=== PATIENT | female | born 1985 | race Two or more races ===

== ENCOUNTER 2017-12-07 23:40 | Emergency (ER) | payer MEDICAID, OTHER ==
[~2017-12-07] VITALS: Ht 170.2 cm; Wt 158.8 kg
[2017-12-08] MEDS ORDERED: PROPOFOL 10 MG/ML 20 ML IV ONE (00:30)
[2017-12-08] MEDS ORDERED: KETOROLAC TROMETH 30 MG/ML 1ML VIAL IV ONE ×2 (01:00→02:45)
[2017-12-08] MEDS ORDERED: PROPOFOL 100 ML IV ONE (01:29)
[2017-12-08] MEDS ORDERED: fentaNYL CITRATE 5 ML ONE (01:50)
[2017-12-08] MEDS ORDERED: fentaNYL CITRATE 100 MCG/2 ML VL IV ONE ×2 (02:00→02:45)
[2017-12-08 03:08] VITALS: BP 130/82
== END 2017-12-08 04:34 | disposition home or self-care (01) ==
LOC: ER 23:45
DX: M23.92 Unspecified internal derangement of left knee (principal); E11.9 Type 2 diabetes mellitus without complications; I10 Essential (primary) hypertension; E66.01 Morbid (severe) obesity due to excess calories; Z68.43 Body mass index [BMI] 50.0-59.9, adult; W01.0XXA Fall on same level from slipping, tripping and stumbling without subsequent striking against object, initial encounter; Y93.89 Activity, other specified; Y92.090 Kitchen in other non-institutional residence as the place of occurrence of the external cause; Y99.8 Other external cause status
CPT/HCPCS: 27560; 72170; 73552; 73560; 96374; 96375; 96376; 99285; J1885; J2704; J3010

== ENCOUNTER 2021-08-24 13:23 | Emergency (ER) | payer MEDICAID ==
[~2021-08-24] VITALS: Ht 170.2 cm; Wt 166.9 kg
[2021-08-24 14:37] LABS: Basophils # (auto) 0 10 ^3/uL (0-0.2); Basophils % (auto) 0.2 % (0.0-2.0); Eosinophils # (auto) 0.2 10 ^3/uL (0-0.8); Eosinophils % (auto) 2.9 % (0.0-7.0); Hematocrit 36.1 % (36.0-46.0); Hemoglobin 11.8 g/dL (12.2-16.2); Lymphocytes # (auto) 1.9 10 ^3/uL (0.4-5.4); Lymphocytes % (auto) 22.6 % (10.0-50.0); Mean Corpuscular Hgb Conc. 32.7 g/dL (32.0-36.0); Mean Corpuscular Volume 82.5 fL (80.0-100.0); Monocytes # (auto) 0.5 10 ^3/uL (0-1.3); Monocytes % (auto) 5.8 % (0.0-12.0); Neutrophils # (auto) 5.6 10 ^3/uL (1.6-8.6); Neutrophils % (auto) 68.5 % (37.0-80.0); Red Blood Cells 4.38 10^6/uL (4.0-5.20); Red Cell Distribution Width 14.7 % (11.8-14.3); White Blood Cell 8.2 10^3/uL (4.4-10.8)
[2021-08-24 14:40] LABS: Albumin 2.7 g/dL (3.4-5.0); BUN/Creatinine Ratio 8.9; Calcium 8.4 mg/dL (8.5-10.1); Potassium 3.5 mmol/L (3.5-5.1)
[2021-08-24 14:43] LABS: Bilirubin, Total 0.2 mg/dL (0.2-1.0); Total Protein 6.9 g/dL (6.4-8.2)
[2021-08-24 16:13] VITALS: BP 152/98
== END 2021-08-24 16:14 | disposition home or self-care (01) ==
LOC: ER 13:23
DX: O16.2 Unspecified maternal hypertension, second trimester (principal); E11.9 Type 2 diabetes mellitus without complications; Z3A.16 16 weeks gestation of pregnancy
CPT/HCPCS: 36415; 76805; 80053; 84702; 85025

== ENCOUNTER 2022-03-24 10:41 | Emergency (ER) | payer MEDICAID ==
[~2022-03-24] VITALS: Ht 170.2 cm; Wt 163.5 kg
[2022-03-24 11:54] VITALS: BP 146/99
[2022-03-24] MEDS ORDERED: KETOROLAC TROMETH 60MG/2ML VIAL IM ONE (12:00)
[2022-03-24] MEDS ORDERED: IBUP800T27 PO (12:22)
[2022-03-24] MEDS ORDERED: METH750T22 PO (12:22)
== END 2022-03-24 12:34 | disposition home or self-care (01) ==
LOC: ER 10:41
DX: S29.011A Strain of muscle and tendon of front wall of thorax, initial encounter (principal); E11.9 Type 2 diabetes mellitus without complications; I10 Essential (primary) hypertension; F12.10 Cannabis abuse, uncomplicated; X58.XXXA Exposure to other specified factors, initial encounter; Y93.89 Activity, other specified; Y92.89 Other specified places as the place of occurrence of the external cause; Y99.8 Other external cause status
CPT/HCPCS: 71101; 96372; 99283; J1885

== ENCOUNTER → 2024-10-19 | Outpatient (CLI) | payer MEDICAID ==
[~2024-10-19] VITALS: Ht 170.2 cm; Wt 187.3 kg
[~2024-10-19] MED LIST: IBUP-1456 PO; METH-1182 PO; PREN-96 PO
[2024-10-19] MEDS: REGADENOSON 0.4 MG/5 ML SYRG IV ONE ×2 (13:31→13:34)
--- NOTE | 2024-10-19 15:12 | DVHSR ---
APPROVED REPORT Exam: Nuclear Stress Test BMI: 0 Stress Test Details HR Max Heart Rate (APMHR): 181.141267 bpm Target HR (85% APMHR): 153.762399 bpm BP ECG Stress ECG Conclusion lvef 54% no severe stress induced ischemia noted NM EXAM: Myocardial Perfusion REST/STRESS Imaging Protocol: Rest Tc-99m/Stress Tc-99m 1 day Resting Data Rest SPECT myocardial perfusion imaging was performed in supine position 60 minutes following the int ravenous injection of 12.1 mCi of Tc-99m Sestamibi. Time of rest injection: 1150 Date: 10/19/2024 Time of rest imagin Date: 10/19/2024 Administration Route: IV Administration Site: Left Arm Pharmacologic Stress Pharmacologic stress test was performed by injecting Regadenoson 0.4 mg IV push followed by the intra venous injection of 36 mCi of Tc-99m Sestamibi. Time of stress injection: 1332 Date: 10/19/2024 Time of stress imagin Date: 10/19/2024 Administration Route: IV Administration Site: Left Arm Gated Stress SPECT was performed 60 minutes after stress injection. The images were gated to evaluate regional wall motion and calculate left ventricular ejection fracti on. Stress only was performed in the Supine position. Nuclear Conclusion Nuclear Findings: negative for ischemia lvef 54% no severe stress induced ischemia noted
== END | disposition home or self-care (01) ==
LOC: XY 11:21
PROVIDERS: ATTEND Internal Medicine
DX: Z01.810 Encounter for preprocedural cardiovascular examination (principal); I10 Essential (primary) hypertension
CPT/HCPCS: 78452; 93017; A9500; J2785